=== PATIENT | male | born 1955 | race Caucasian/White ===

== ENCOUNTER 2016-08-14 14:30 | Outpatient (CLI) | payer OTHER | END 2016-08-14 14:31 | disposition home or self-care (01) | DX: M00.869 Arthritis due to other bacteria, unspecified knee (principal) ==

== ENCOUNTER 2016-08-21 08:00 | Outpatient (CLI) | payer OTHER | END 2016-08-21 08:01 | disposition home or self-care (01) | DX: M00.869 Arthritis due to other bacteria, unspecified knee (principal) ==

== ENCOUNTER 2019-07-11 09:42 | Outpatient (CLI) | payer OTHER ==
[2019-07-11 10:56] VITALS: BP 118/74
--- NOTE | 2019-07-11 10:56 | SLEEP CARE CONSULTATION ---
Information from patient questionnaire entered by Chantal Serrano. I have reviewed and concur with the information entered by Chantal Serrano. This document represents the service I personally performed and the decisions made by me, Emperatriz Ruiz MD, [facility]. History of Present Illness Reason for Visit: New patient Chief Complaint: reports: Unrefreshed sleep, Snoring, Excessive daytime sleepiness, Observed pauses in breathing, Fatigue, Frequent awakenings at night Duration of Symptoms: years Usual bedtime: 9 pm Time it takes to fall asleep: 5-30 minutes Snores at night: Yes Observed to quit breathing while asleep: Yes Sleeps alone due to snoring: No Number of times waking at night: 3-4 Reasons for waking at night: reports: Bathroom Toss, Turn, or Twitch while sleeping: Yes Recalls having dreams: Yes (sometimes/remembers bits) Usually gets out of bed at: mon-fri 5:30 am, weekends 9-10 am Feels refreshed in the morning: No Morning headache: Yes (once in a while) Sleepy or fatigued during the day: Yes Ever fallen asleep while driving: Yes Takes day naps: Yes (once in a while) Dreams during day naps: No Prior sleep studies: Yes Year and Where: 20 plus years ago Additional HPI information: I had the pleasure of seeing Mr. Adrian today regarding the possibility of him having a sleep disorder. As you know, he is a 63 year old gentleman who was diagnosed with sleep apnea 20+ years ago in [place]. He used a CPAP for about 3 years. He thinks it helped but it was too cumbersome. He quit because his nose hurt. He wore a full face mask. The patient tells me that he normally goes to bed around 9 pm, and it takes him approximately 5 - 30 minutes to fall asleep. He has been told that he snores loudly and irregularly at night especially when he is on his back. He has never been observed to stop breathing in his sleep. His can still sleep in the same bed. He can recall waking up on the average of 3 - 4 times during the night. Most of the time he wakes up because of having to use the bathroom. He has awakened occasionally because of his own snoring, choking, and having to gasp for air. There is a lot of tossing and turning in his sleep. No somniloq uy (sleep talking) or somnambulism (sleep walking). Generally he can recall having dreams. In the morning he usually gets up out of the bed around 5:30 a.m. not feeling refreshed nor rested. He usually does not have a morning headache. During the day he complains of feeling sleepy and fatigued. His score on [place] Sleepiness Scale is 21 out of 24. He has fallen asleep while driving and has gone out of the tariq. He usually does not take naps during the day. Upon falling asleep during the day he denies having vivid dreams. He has never had sleep paralysis, experienced cataplexy but reports symptoms of restless leg syndrome. He reports having impaired concentration during the day. 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 Patient is and lives in [place]. Have you smoked in the past 12 months: No Alcohol use: No Caffeine use: Yes Caffeine amount and frequency: 3-4 cups of tea Family History Family history of sleep disordered breathing: Yes Family Hx Sleep Apnea: Father: Sleep apnea - Untreated, Sibling: Sleep apnea - Treated Allergies and Home Medications Drug allergies reviewed: Yes Allergy and home medication list: Meds: benazepril, carvedilol, trazodone, sildenafil, levothyroxine, testosterone, latanoprist Review of Systems Weight gain over past 5 years: 20 Weight loss over past 5 years: 20 Cardiovascular: reports: high blood pressure, palpitations, irregular heart rate or pulse, leg or foot swelling Respiratory: reports: shortness of breath, sputum production Gastrointestinal: reports: heartburn, difficulty swallowing Urinary: reports: frequency, urgency Neurological: reports: gait or balance problems Psychiatric: reports: anxiety, depression Ear/Nose/Throat: reports: nasal congestion, dry mouth/throat, injury to nose, wisdom teeth removed Endocrine: reports: thyroid disease, sluggishness, excessive thirst, increased appetite, increased urination, unexplained weakness Musculoskeletal: reports: joint pain, neck pain, muscle pain or cramping Immunologic: reports: itching Physical Exam Vital signs obtained and entered by: Dr. Ruiz Blood Pressure: 118/74 Cuff size: regular Heart Rate: 52 O2 Saturation: 97 Height: 5 ft 11 in Weight: 275 lb Body Mass Index: 38.3 BMI Classification: Obesity Class 2 Neck circumference: 17 Mood/affect: normal HEENT: No craniofacial malformation Nostrils: patent to airflow Turbinates: normal Septum: midline Mouth and throat: narrow oropharynx Soft palate: long Hard palate: normal Uvula: normal Uvula visualization: 100% Mallampati Class I Tongue: normal in size Tonsils: small Chin and jaw: normal size and position Neck: normal w/o lymphadenopathy or thyromegaly Heart: regular rate and rhythm, murmur Lungs: clear bilaterally Abdomen: soft, non-tender Extremities: no edema or clubbing Neurologic: intact, no focal deficits Impression and Plan IMPRESSION: 1. Obstructive Sleep Apnea-Hypopnea Syndrome, as previously diagnosed but presently untreated. He appears to be symptomatic for loud and irregular snoring, frequent awakenings during the night, unrefreshed sleep, cognitive impairment, and daytime hypersomnolence. Untreated obstructive sleep apnea can also cause hypertension. Narrow oropharynx and obesity are common predisposing factors for obstructive sleep apnea-hypopnea syndrome. Pathophysiology of sleep-disordered breathing was discussed. I recommend proceeding to polysomnography to confirm the diagnosis and to assess severity. If he has significant sleep disordered breathing, a manual CPAP titration study will also be performed to find the optimal treatment pressure. I informed the patient of what the sleep studies involve and after some discussion, he agreed to proceed. Plan: 1. Schedule polysomnography + manual CPAP titration study and return in 1 to 2 weeks after the study to discuss result and initiate therapy. 2. Avoid long distance driving or when feeling sleepy. 3. Avoid alcohol, sedative and muscle relaxant around bedtime. 4. Attempt to lose weight. I spent 100% of this [20][30] minute visit face to face with the patient with greater than 50% of this was spent time counseling the patient and coordination of care.
== END 2019-07-11 09:43 ==
LOC: SC 09:42
PROVIDERS: ATTEND Internal Medicine Pulmonary Disease
DX: G47.33 Obstructive sleep apnea (adult) (pediatric) (principal); E66.9 Obesity, unspecified; Z68.38 Body mass index [BMI] 38.0-38.9, adult
CPT/HCPCS: 99203; 99212

== ENCOUNTER 2019-08-08 19:30 | Outpatient (CLI) | payer OTHER | END 2019-08-08 23:59 | disposition home or self-care (01) | LOC: SC 19:30 | PROVIDERS: ATTEND Internal Medicine Pulmonary Disease | DX: G47.33 Obstructive sleep apnea (adult) (pediatric) (principal) | CPT/HCPCS: 95806 ==

== ENCOUNTER 2019-08-30 13:49 | Outpatient (CLI) | payer OTHER ==
[2019-08-30 14:53] VITALS: BP 110/60
--- NOTE | 2019-08-30 14:53 | SLEEP CARE CONSULTATION ---
Information from patient questionnaire entered by Chantal Serrano. I have reviewed and concur with the information entered by Chantal Serrano. This document represents the service I personally performed and the decisions made by me, Seema Cast RN, MSN, [employer]. History of Present Illness Initial [place] Sleepiness Scale score: 21 Current [place] Sleepiness Scale score: 18 Additional HPI information: SHANTANU THOMASON returns with spouse for follow up of the recently performed home sleep study. I explained the pathophysiology behind obstructive sleep apnea. Patient does not have sleep apnea and was advised how weight gain could increase the risk of developing sleep apnea in the future. I strongly encouraged the patient to lose weight. Patient has lost over a hundred pounds since diagnosed with sleep apnea 20 years ago. When he was 30 pounds cup setter lockstitch, he felt more rested and refreshed with more energy during the day. Patient has snoring. Snoring can be reduced by weight loss. Weight loss is best achieved with diet consult. Patient instructed to contact PCP for referral. Snoring can also be treated with an oral appliance from a dentist. Advised to check insurance coverage. He will consider. In addition, an ENT evaluation can be do to see if other treatment is indicated. He has a history of deviated septum and repaired. He breathes better through his nose but still has nasal congestion affecting ability to breathe through his nose. Patient counseled not drink alcohol less than 4 hours before bedtime as it can increase snoring and apnea. Patient does not drink alcohol. Patient was cautioned about risks of drowsy driving until sleepiness symptoms resolve. AASM patient education on snoring and sleep apnea given and reviewed. Sleep Study - Results Polysomnography/Home Sleep Study results: SLEEP TIME AND EFFICIENCY: The sleep study recording began at 09:08:44 PM and ended at 05:35:49 AM. Total recording time was 507.1 minutes. The total sleep time was 465.0 minutes. The sleep efficiency was 91.7 percent. The patient spent 364.4 minutes supine, and spent 100.6 minutes non-supine. The patients own estimate of sleep time was 8.50 hours. RESPIRATORY DATA: The AHI in this report is indexed to sleep time based on actigraphy. The AASM defines this as OSITO. The AHI on this type 3 Home Sleep Study may understate the AHI determined on a type 1 or 2 study, since EEG is not monitored resulting in the inability to score non-desaturating hypopneas. Based on 4% Calculation: The AHI4% calculation of 3.2 per hour of recording time was based on a total of 17 scored apneas and 8 scored hypopneas with 4% desaturations. Supine AHI4%: 3.5 per hour. Non-supine AHI4%: 2.4 per hour. Oxygen Summary: Patient's baseline O2 saturation was 95.1 %. The patient spent 0.8 minutes at an oxygen saturation less than 90%, and 0.1 minutes less than 85%. The desaturation index was 2.1 events per hour sleep time. The lowest saturation was 70.1 %. SNORING: The percent of the study time spent snoring was 0.9 %. The Snoring Count was 150 . The Snoring Index was 19.4 . PULSE RATE REVIEW: The mean heart rate was 58 beats per minute. The rate ranged from a low of 49 to a high of 81 beats per minute. DIAGNOSIS CODE: suspected Obstructive Sleep Apnea (ICD-10 G47.30) Recommendation: No treatent is recommended. However, if there is a high pretest probablility for sleep disordered breathing, an in-laboratory polysomnography should be performed. Clinical correlation advised. Allergies and Home Medications Known drug allergies: Yes (vancomycin) Home medication list reviewed: Yes Allergy and home medication list: levothyroxine daily carvedilol daily bid benazepril daily bid testosterone injection 0.5mg every 2 weeks Buprenorphine and naloxone 8mg/2mg daily SL Review of Systems Review of systems same as previous: Yes Physical Exam Blood Pressure: 110/60 Cuff size: long Heart Rate: 58 O2 Saturation: 97 Height: 5 ft 11 in Weight: 280 lb 9.6 oz Body Mass Index: 39.1 BMI Classification: Obesity Class 2 Impression and Plan 1. Snoring but no significant sleep disordered breathing. Patient advised that often weight loss will reduce snoring as well as apnea risk. An oral appliance can also be used for snoring. This would require a dental consultation. Patient cautioned not to use other online appliances as can cause bite issues. A list of accredited dentists in area and one local dentist who makes oral appliances given. Patient is advised to check if insurance will cover. An ENT consult can also be helpful to determine if any other treatment is an option. 2. Excessive daytime sleepiness, todays Breckenridge was 18. After much discussion with patient it seems he was less sleepy when 30 pounds cup setter lockstitch in the past year. Weight gain can increase risk of snoring and apnea. Thus weight loss may be a treatment option. Since he is struggling with weight loss, a diet consultation could be beneficial but requires a referral from his PCP. He is also on medication that could make him sleepy but he states he was not sleepy with this medication 30 pounds cup setter lockstitch. Thus he is advised to follow up with PCP at his appointment next week for further evaluation of his sleepiness symptoms. A repeat polysomnography could also be done for further evaluation of sleep disordered breathing as a cause since an HST does not have an EEG to notice non desaturating hypopneas and symptoms have increased with weight gain increasing risk of apnea. Use of CPAP and control of apnea can reduce sleep disruption and increase ability to lose weight. Patient would like to defer until he discusses with his PCP. * Follow up with PCP for further evaluation of sleepiness symptoms. * Attempt to lose weight * Consider diet consultation. * Consider ENT consultation. * Avoid alcohol consumption near bedtime - does not drink * The patient is cautioned about driving until sleepiness is completely resolved. * Contact this office after PCP visit to inform this office of decision to pursue evaluation with polysomnography . * Time Spent with Patient (minutes): 36 I spent 100% of this visit face to face with the patient with greater than 50% of this was spent time counseling the patient and coordination of care.
== END 2019-08-30 13:50 | disposition home or self-care (01) ==
LOC: SC 13:49
PROVIDERS: ATTEND Nurse Practitioner Family
DX: R06.83 Snoring (principal); G47.10 Hypersomnia, unspecified; E66.9 Obesity, unspecified; Z68.39 Body mass index [BMI] 39.0-39.9, adult
CPT/HCPCS: 99212; 99214

== ENCOUNTER 2019-09-11 09:19 | Emergency (ER) | payer OTHER ==
[2019-09-11 09:33] VITALS: BP 122/56
[2019-09-11 09:59] LABS: RAPID STREP SCREEN Negative (Negative)
--- NOTE | 2019-09-11 10:12 | ED Physician Documentation ---
History of Present Illness - Stated complaint Stated Complaint: SORE THROAT - Chief complaint Chief Complaint: Heent - Additonal information Additional information: This is a 64-year-old male with a history of hypertension, heart failure, pre sents with sore throat nasal congestion, mild cough. This began on . He has felt some subjective fevers, no measured fever at home. He denies any chest pain, no changes to his breathing. He has had mild cough that has been nonproductive. Review of Systems Constitutional: denies: Fever Throat: reports: Sore throat Cardiac: denies: Chest pain / pressure Respiratory: denies: Dyspnea PD PAST MEDICAL HISTORY - Past Medical History Cardiovascular: Hypertension Respiratory: None Endocrine/Autoimmune: None - Past Surgical History Past Surgical History: Yes Ortho: Knee replacement - Present Medications Home Medications: Ambulatory Orders Medication Instructions Recorded Confirmed Benazepril HCl 1 tab PO BID 06/14/16 06/14/16 Carvedilol 1 tab PO BID 06/14/16 06/14/16 Levothyroxine [Synthroid] 1 tab PO DAILY 06/14/16 06/14/16 - Allergies Allergies/Adverse Reactions: Allergies Allergy/AdvReac Type Severity Reaction Status Date / Time No Known Drug Allergies Allergy Verified 09/11/19 09:29 - Social History Does the pt smoke?: No Smoking Status: Never smoker Does the pt drink ETOH?: No Does the pt have substance abuse?: No - Immunizations Immunizations are current?: Yes PD ED PE NORMAL - Vitals Vital signs reviewed: Yes - General General: Alert and oriented X 3, No acute distress - HEENT HEENT: Other (Posterior pharynx is erythematous, there is minimal tonsillar edema there is no exudate. Uvula is midline.) - Neck Neck: Supple, no meningeal sign - Cardiac Cardiac: Other (Mild bradycardia, regular rhythm) - Respiratory Respiratory: No respiratory distress, Clear bilaterally, Other - Abdomen Abdomen: Soft, Non distended - Derm Derm: Warm and dry - Extremities Extremities: No deformity - Neuro Neuro: Alert and oriented X 3 - Psych Psych: Normal mood, Normal affect Results - Vitals Vitals: Oxygen O2 Source Room air - Labs Labs: Microbiology 09/11/19 09:33 Group A Strep Throat Culture - Preliminary Throat CULTURE IN PROGRESS. RESULTS TO FOLLOW. Laboratory Tests 09/11/19 09:33 Group A Strep Rapid Negative PD MEDICAL DECISION MAKING - ED course ED course: Pt's symptoms are most consistent with URI and viral pharyngitis. His lungs are clear, O2 saturation is normal, no signs of pneumonia. No signs of EDGE BEADER or other more serious infection. No chest pain or shortness of breath. Pt is well- appearing. Rapid strep is negative. I discussed supportive care, return precautions, and after dexamethasone for symptom control patient was dischraged home in good condition. Departure - Departure Disposition: 01 Home, Self Care Clinical Impression: Pharyngitis Qualifiers: Pharyngitis/tonsillitis etiology: unspecified etiology Qualified Code(s): J02.9 - Acute pharyngitis, unspecified Condition: Good Instructions: ED Pharyngitis Viral Follow-Up: Leland Kruse MD [Primary Care Provider] - Comments: Your strep swab today was negative, I think this sore throat is likely caused by a virus. You may take Tylenol 650 mg every 6 hours for discomfort. We have given you a steroid that should help calm down your throat as well. Please drink adequate fluids and get plenty of rest. If you are having worsening symptoms such as difficulty breathing, return to the emergency department. We have sent the throat swab for culture, if this comes back positive for strep or another treatable bacteria we will call you with a prescription. Discharge Date/Time: 09/11/19 11:01
[2019-09-11] MEDS ORDERED: CHERRY SYRUP 10 ML UDC PO ONE (10:53)
[2019-09-11] MEDS ORDERED: DEXAMETHASONE 10 MG/ML VIAL PO STA (10:53)
== END 2019-09-11 11:01 | disposition home or self-care (01) ==
LOC: ED 09:19
DX: J02.9 Acute pharyngitis, unspecified (principal); R05 Cough; R09.81 Nasal congestion; R00.1 Bradycardia, unspecified; I11.0 Hypertensive heart disease with heart failure; I50.9 Heart failure, unspecified
CPT/HCPCS: 87070; 87430; 99283; 99284; A9270

== ENCOUNTER 2019-11-13 19:17 | Outpatient (CLI) | payer OTHER | END 2019-11-13 19:18 | disposition home or self-care (01) | LOC: COV 19:17 | PROVIDERS: ATTEND Family Medicine | DX: R05 Cough (principal); R50.9 Fever, unspecified | CPT/HCPCS: 81599 ==

== ENCOUNTER 2020-03-22 16:42 | Outpatient (CLI) | payer OTHER ==
--- NOTE | 2020-03-23 00:13 | XRAY Report ---
PROCEDURE: Shoulder 3 View RT INDICATIONS: RIGHT SHOULDER PAIN,PAIN IN LEFT THUMB TECHNIQUE: 4 views of the shoulder were acquired. COMPARISON: None. FINDINGS: Bones: No acute fractures or dislocations. No suspicious bony lesions. Visualized ribs appear inta ct. There is minimal spurring of the inferior glenoid. Mild degenerative changes are seen in the acr omioclavicular joint. Soft tissues: No suspicious soft tissue calcifications. IMPRESSION: No acute fracture or dislocation. Mild acromioclavicular and minimal glenohumeral osteoa rthrosis. MRI may be obtained if there is suspicion for a soft tissue injury. Reviewed by: Ilya Braswell MD on 03/23/2020 12:12 AM PDT Approved by: Ilya Braswell MD on 03/23/2020 12:12 AM PDT Station ID: [id number]
--- NOTE | 2020-03-23 00:15 | XRAY Report ---
PROCEDURE: Finger(s) LT INDICATIONS: RIGHT SHOULDER PAIN,PAIN IN LEFT THUMB TECHNIQUE: AP hand, 2 views of the thumb acquired. COMPARISON: No previous study is available for comparison. FINDINGS: Bones: No acute fractures or dislocations. No suspicious bony lesions. Mild degenerative changes a t the first carpometacarpal joint. Soft tissues: No suspicious soft tissue calcifications. IMPRESSION: No acute osseous abnormality is identified. Reviewed by: Ilya Braswell MD on 03/23/2020 12:13 AM PDT Approved by: Ilya Braswell MD on 03/23/2020 12:13 AM PDT Station ID: [id number]
== END 2020-03-22 16:43 | disposition home or self-care (01) ==
LOC: DI.S 16:42
PROVIDERS: ATTEND Nurse Practitioner Family
DX: M19.011 Primary osteoarthritis, right shoulder (principal); M79.645 Pain in left finger(s)
CPT/HCPCS: 73140

== ENCOUNTER 2020-06-17 15:01 | Outpatient (CLI) | payer OTHER ==
--- NOTE | 2020-06-17 17:48 | MRI Report ---
PROCEDURE: Shoulder RT W/O INDICATIONS: PAIN IN RT SHLDR TECHNIQUE: Noncontrast oblique coronal T2 fast spin echo with fat saturation, oblique sagittal T1 spin echo and T2 fast spin echo with fat saturation, axial T1 spin echo and T2 fast spin echo with fat saturation t hrough the shoulder. COMPARISON: X-ray 03/22/2020. FINDINGS: Image quality: There is mild motion artifact. Rotator cuff: There is tendinopathy of the supraspinatus and infraspinatus with full-thickness teari ng in the distal supraspinatus near its insertion. There is mild retraction of torn fibers by up to a pproximately 1.5 cm. The tear measures up to approximately 1.6 cm in anteroposterior dimension. There are residual intact appearing fibers within the supraspinatus anteriorly. The infraspinatus demonstr ates mild to moderate partial thickness articular surface tearing distally. The subscapularis demonst rates tendinopathy with mild tearing distally. The teres minor tendon appears intact. There is severe fatty atrophy of the teres minor muscle. Bones and bursae: No bone marrow contusions or fractures. There is moderate to severe acromioclavicu lar joint degeneration. The acromion demonstrates conventional anatomy, without an os acromiale. A m oderate amount of subacromial/subdeltoid bursal fluid is present communicating with the glenohumeral joint. There is mild glenohumeral joint degeneration. Capsule and soft tissues: There is mild degenerative tearing within the posterior inferior labrum. I n the absence of intra-articular contrast, the glenohumeral ligaments appear intact. The long head o f the biceps tendon demonstrates normal location and morphology. The rotator interval appears normal , without fibrosis. The coracohumeral ligament is normal in thickness. IMPRESSION: 1. Tendinopathy of the superior cuff with full-thickness tearing of the supraspinatus as described. M ild to moderate articular surface partial tearing of the distal infraspinatus also noted. No associat ed fatty muscle atrophy. 2. Severe fatty atrophy of the teres minor muscle suggesting sequelae of impingement. 3. Moderate to severe acromioclavicular joint degeneration with moderate subacromial/subdeltoid bursa fluid. 4. Mild degenerative tearing of the posterior inferior labrum. Reviewed by: Paddy Adam MD on 06/17/2020 5:47 PM PST Approved by: Paddy Adam MD on 06/17/2020 5:47 PM PST Station ID: [id number]
== END 2020-06-17 15:02 | disposition home or self-care (01) ==
LOC: DI 15:01
PROVIDERS: ATTEND Nurse Practitioner Family
DX: M75.101 Unspecified rotator cuff tear or rupture of right shoulder, not specified as traumatic (principal); M19.011 Primary osteoarthritis, right shoulder

== ENCOUNTER 2023-09-08 07:49 | Outpatient (CLI) | payer OTHER ==
--- NOTE | 2023-09-08 11:32 | Ultrasound Report ---
PROCEDURE: Aorta Screening INDICATIONS: EX SMOKER TECHNIQUE: Real time scanning was performed of the aorta and iliac arteries, with image documentatio n. COMPARISON: None. FINDINGS: Aorta: Proximal aortic diameter measures 2.9 x 2.8 cm. Mid-aorta measures 2.3 x 2.5 cm. Distal aor tic diameter is 1.9 x 1.8 cm. Iliac arteries: Right common iliac artery measures 1.3 x 1.3 cm. Left common iliac artery measures 1.3 x 1.3 cm. IMPRESSION: Ectatic but not aneurysmal proximal abdominal aorta. Comment: As per the recommendations below, consider repeat imaging in 5 years. Recommended intervals for follow-up imaging of ectatic aortas and abdominal aortic aneurysms, per ACR consensus guidelines: 2.5-2.9 cm: 5 years 3.0-3.4 cm: 3 years 3.5-3.9 cm: 2 years 4.0-4.4 cm: 1 year 4.5-4.9 cm: 6 months + endovascular referral 5.0-5.5 cm: 3-6 months + endovascular referral Reviewed by: Kailash Rowley MD on 09/08/2023 11:31 AM PST Approved by: Kailash Rowley MD on 09/08/2023 11:31 AM PST Station ID: [id number]
== END 2023-09-08 07:50 | disposition home or self-care (01) ==
LOC: DI 07:49
PROVIDERS: ATTEND Nurse Practitioner Family
DX: Z13.6 Encounter for screening for cardiovascular disorders (principal); Z87.891 Personal history of nicotine dependence; I77.811 Abdominal aortic ectasia

== ENCOUNTER 2023-12-27 09:34 | Outpatient (CLI) | payer OTHER ==
--- NOTE | 2023-12-28 00:56 | XRAY Report ---
PROCEDURE: Hand 3+V LT INDICATIONS: L THUMB PAIN TECHNIQUE: 3 view(s) of the hand(s) acquired. COMPARISON: None FINDINGS: Bones: No fractures or dislocations. No suspicious bony lesions. Soft tissues: No suspicious soft tissue calcifications. IMPRESSION: Unremarkable hand radiographs Reviewed by: Efra Marroquin MD on 12/27/2023 11:54 PM AKDT Approved by: Efra Marroquin MD on 12/27/2023 11:54 PM AKDT Station ID: [id number]
== END 2023-12-27 09:35 | disposition home or self-care (01) ==
LOC: DI.S 09:34
PROVIDERS: ATTEND Nurse Practitioner Family
DX: M79.645 Pain in left finger(s) (principal)

== ENCOUNTER 2024-05-04 10:21 | Emergency (ER) | payer OTHER ==
--- NOTE | 2024-05-04 10:40 | ED Physician Documentation ---
History of Present Illness - Stated complaint Stated Complaint: C+,CONSTIPATED,ABD PX - History obtained from History obtained from: Patient - Additonal information Additional information: The patient comes to the emergency department chief complaint of fever, chills, cough, and bodyaches. He states that started yesterday. His recently tested positive for COVID. He also had a sore throat yesterday but this is better today. He denies any nausea or vomiting. No diarrhea. No urinary symptoms. No shortness of breath. No abdominal or chest pain. PD PAST MEDICAL HISTORY - Past Medical History Cardiovascular: Hypertension Respiratory: None Endocrine/Autoimmune: None - Past Surgical History Past Surgical History: Yes Ortho: Knee replacement - Present Medications Home Medications: Ambulatory Orders Medication Instructions Recorded Confirmed Benazepril HCl 1 tab PO BID 06/14/16 06/14/16 Carvedilol 1 tab PO BID 06/14/16 06/14/16 Levothyroxine [Synthroid] 1 tab PO DAILY 06/14/16 06/14/16 - Allergies Allergies/Adverse Reactions: Allergies Allergy/AdvReac Type Severity Reaction Status Date / Time No Known Drug Allergies Allergy Verified 09/11/19 09:29 - Social History Does the pt smoke?: No Smoking Status: Never smoker Does the pt drink ETOH?: No Does the pt have substance abuse?: No - Immunizations Immunizations are current?: Yes PD ED PE NORMAL - Vitals Vital signs reviewed: Yes - General General: Alert and oriented X 3, No acute distress, Well developed/nourished - HEENT HEENT: Atraumatic, EOMI, Moist mucous membranes - Neck Neck: Supple, no meningeal sign - Cardiac Cardiac: RRR, No murmur - Respiratory Respiratory: No respiratory distress, Clear bilaterally - Abdomen Abdomen: Soft, Non tender, Non distended - Derm Derm: Normal color, Warm and dry, No rash - Extremities Extremities: No deformity - Neuro Neuro: Other (Alert, grossly intact.) - Psych Psych: Normal mood, Normal affect Results - Vitals Vitals: Oxygen O2 Source Room air PD Medical Decision Making - ED course Complexity details: reviewed results, re-evaluated patient, considered differential, d/w patient ED course: The patient was very likely to have COVID and testing was initiated for this, but based on his age, he was also worked up with chest x-ray, general labs, and urinalysis.
--- NOTE | 2024-05-04 10:58 | XRAY Report ---
PROCEDURE: Chest 1V INDICATIONS: cough/fever TECHNIQUE: One view of the chest was acquired. COMPARISON: 07/29/2016. FINDINGS: Surgical changes and devices: None. Lungs and pleura: No pleural effusions or pneumothorax. Lungs are clear. Mediastinum: Mediastinal contours appear normal. Heart size is normal. Bones and chest wall: No suspicious bony lesions. Overlying soft tissues appear unremarkable. IMPRESSION: No acute cardiopulmonary process. Reviewed by: Kailash Rowley MD on 05/04/2024 10:57 AM PDT Approved by: Kailash Rowley MD on 05/04/2024 10:57 AM PDT Station ID: [id number]
[2024-05-04 10:59] LABS: BASOPHILS % (AUTO) 0.6 %; EOSINOPHILS % (AUTO) 0.9 %; HCT - HEMATOCRIT 38.6 % (42.0-52.0); HGB - HEMOGLOBIN 12.1 g/dL (14.0-18.0); LYMPHOCYTES # (AUTO) 0.8 10^3/uL (1.5-3.5); LYMPHOCYTES % (AUTO) 24.1 %; MEAN CORPUSCULAR HEMOGLOBIN 29.2 pg (27.0-31.0); MEAN CORPUSCULAR HGB CONC 31.3 g/dL (32.0-36.0); MEAN CORPUSCULAR VOLUME 93.2 fL (80.0-94.0); MEAN PLATELET VOLUME 10.6 fL (7.4-11.4); MONOCYTES # (AUTO) 0.4 10^3/uL (0.0-1.0); MONOCYTES % (AUTO) 10.1 %; NEUTROPHILS # (AUTO) 2.2 10^3/uL (1.5-6.6); NEUTROPHILS % (AUTO) 63.7 %; PLT - PLATELET COUNT 185 10^3/uL (130-450); RED BLOOD COUNT 4.14 10^6/uL (4.70-6.10); RED CELL DISTRIBUTION WIDTH 14.2 % (12.0-15.0); WHITE BLOOD COUNT 3.5 x10^3/uL (4.8-10.8)
[2024-05-04] MEDS: ACETAMINOPHEN 325 MG TABLET PO STA (11:15)
[2024-05-04] MEDS: IBUPROFEN 600 MG TABLET PO STA (11:15)
[2024-05-04] MEDS: SODIUM CHLORIDE 0.9% 1,000 ML IV STA (11:15)
[2024-05-04 11:18] LABS: ALBUMIN 4.1 g/dL (3.2-5.5); ALBUMIN/GLOBULIN RATIO 2.2 (1.0-2.2); ALKALINE PHOSPHATASE 81 IU/L (42-121); ALT ALANINE AMINOTRANSFERASE 18 IU/L (10-60); AST ASPARTATE AMINOTRANSFERASE 22 IU/L (10-42); BILIRUBIN,TOTAL 1.2 mg/dL (0.2-1.0); BUN - BLOOD UREA NITROGEN 11 mg/dL (6-20); CALCIUM 9.1 mg/dL (8.5-10.3); CARBON DIOXIDE - CO2 30 mmol/L (21-32); CHLORIDE 102 mmol/L (101-111); CREATININE 0.8 mg/dL (0.6-1.3); GFR - MDRD 96 (>89); GLUCOSE 98 mg/dL (74-104); POTASSIUM 4.2 mmol/L (3.5-4.5); SODIUM 137 mmol/L (135-145)
--- NOTE | 2024-05-04 11:21 | ED Physician Documentation ---
History of Present Illness - Stated complaint Stated Complaint: C+,CONSTIPATED,ABD PX - Chief complaint Chief Complaint: Abd Pain - Additonal information Additional information: 76-year-old male with history of hypertension currently on Suboxone chronic constipation presents emergency department for 5 days of no bowel movement. Patient also states that 2 days ago he was diagnosed with COVID and so is overall feeling unwell and cannot tell if it because he is constipated or because of COVID or combination. He feels some mild nausea no vomiting he has no history of abdominal surgeries he has been taking MiraLAX at home as well as a couple enemas without any success of a bowel movement. PD PAST MEDICAL HISTORY - Past Medical History Cardiovascular: Hypertension Respiratory: None Endocrine/Autoimmune: None - Past Surgical History Past Surgical History: Yes Ortho: Knee replacement - Present Medications Home Medications: Ambulatory Orders Medication Instructions Recorded Confirmed Benazepril HCl 1 tab PO BID 06/14/16 06/14/16 Carvedilol 1 tab PO BID 06/14/16 06/14/16 Levothyroxine [Synthroid] 1 tab PO DAILY 06/14/16 06/14/16 - Allergies Allergies/Adverse Reactions: Allergies Allergy/AdvReac Type Severity Reaction Status Date / Time No Known Drug Allergies Allergy Verified 05/04/24 10:39 - Social History Does the pt smoke?: No Smoking Status: Never smoker Does the pt drink ETOH?: No Does the pt have substance abuse?: No - Immunizations Immunizations are current?: Yes PD ED PE NORMAL - Vitals Vital signs reviewed: Yes - General General: Alert and oriented X 3, No acute distress, Well developed/nourished - HEENT HEENT: Atraumatic - Cardiac Cardiac: RRR - Respiratory Respiratory: No respiratory distress - Abdomen Abdomen: Normal bowel sounds, Soft, Non tender, Non distended, No organomegaly, Other - Derm Derm: Normal color, Warm and dry, No rash Results - Vitals Vitals: Vital Signs - 24 hr 05/04/24 05/04/24 05/04/24 10:34 12:43 14:00 Temperature 36.7 C Heart Rate 53 L 54 L 51 L Respiratory 17 17 15 Rate Blood Pressure 160/68 H 160/68 H 152/79 H O2 Saturation 97 98 99 Oxygen O2 Source Room air - Labs Labs: Laboratory Tests 05/04/24 05/04/24 05/04/24 10:51 10:51 13:49 WBC 3.5 L RBC 4.14 L Hgb 12.1 L Hct 38.6 L MCV 93.2 MCH 29.2 MCHC 31.3 L RDW 14.2 Plt Count 185 MPV 10.6 Neut # (Auto) 2.2 Lymph # (Auto) 0.8 L [place] # (Auto) 0.4 Eos # (Auto) 0.0 Baso # (Auto) 0.0 Absolute Nucleated RBC 0.00 Nucleated RBC % 0.0 Sodium 137 Potassium 4.2 Chloride 102 Carbon Dioxide 30 Anion Gap 5.0 L BUN 11 Creatinine 0.8 Estimated GFR (MDRD) 96 Glucose 98 Calcium 9.1 Total Bilirubin 1.2 H AST 22 ALT 18 Alkaline Phosphatase 81 Total Protein 6.0 L Albumin 4.1 Globulin 1.9 L Albumin/Globulin Ratio 2.2 Lipase < 10 L Nasal Adenovirus (PCR) NOT DETECTED Nasal B. parapertussis DNA (PCR) NOT DETECTED Nasal Coronavir 229E PCR NOT DETECTED Nasal Coronavir HKU1 PCR NOT DETECTED Nasal Coronavir NL63 PCR NOT DETECTED Nasal Coronavir OC43 PCR NOT DETECTED Nasal Enterovir/Rhinovir PCR NOT DETECTED Nasal Influenza B PCR NOT DETECTED Nasal Influenza A PCR NOT DETECTED Nasal Parainfluen 1 PCR NOT DETECTED Nasal Parainfluen 2 PCR NOT DETECTED Nasal Parainfluen 3 PCR NOT DETECTED Nasal Parainfluen 4 PCR NOT DETECTED Nasal RSV (PCR) NOT DETECTED Nasal B.pertussis DNA PCR NOT DETECTED Nasal C.pneumoniae (PCR) NOT DETECTED Masoud Human Metapneumo PCR NOT DETECTED Nasal M.pneumoniae (PCR) NOT DETECTED Nasal SARS-CoV-2 (PCR) DETECTED A - Rads (name of study) chest Xray Relevant Findings:: Final report received, EMP independent interpretation of test, Other (No acute cardiopulmonary abnormalities or findings) Abdomen pelvis with contrast Relevant Findings:: Final report received, EMP independent interpretation of test, Other (Normal fecal load, very mild pelvic ascites, mild bladder wall thickening.) PD Medical Decision Making - ED course ED course: 68-year-old male presents emergency department for concerns of constipation. He has no history of abdominal surgeries he is not having any emesis he does have some mild underlying nausea but says that he cannot tell if this is from COVID or from being constipated. Labs are complete for further evaluation which revealed mild leukopenia 3.5 which is most likely due to COVID-positive, no other significant electrolyte abnormalities. He was given 1 L of IV fluid as well as some Tylenol ibuprofen and Zofran for his COVID symptoms. After soapsuds enema was complete patient at that point time was still unable to have a bowel movement so we completed abdominal CT with contrast for further evaluation. Abdominal CT showed normal fecal load very mild pelvic ascites with mild bladder wall thickening. Patient denies any signs symptoms of urinary tract infection. After CT scan patient was able to start having more bowel movement. Patient was told going home to drink plenty of fluids he was updated about his CT findings and was very reassured by this. He is told to follow-up with primary care provider as needed and to take MiraLAX daily until he feels like he is starting to have regular bowel movements again. All questions answered patient is safe for discharge at this time. Departure - Departure Disposition: 01 Home, Self Care Clinical Impression: COVID-19, Constipation Instructions: ED Constipation Comments: Thank you for trusting us with your care, we have evaluated you for your concerns of constipation. We have given you a soapsuds enema and unfortunately you are not able to have a bowel movement because of this we decided to pursue an abdominal CT scan. Your abdominal CT scan was reassuring it shows that you have a normal amount of stool in your colon most of the fecal load is higher up in your abdomen and so is just going to take time for it to pass through. Make sure that you are drinking plenty of water that you are taking MiraLAX 1-2 times a day and you can consider adding things like prune juice to your regimen to make sure that you eventually have a bowel movement. I know it is difficult because you not feeling well with COVID but the more that you can be up walking moving around the more physical activity and exercise the easier it is for your body to pass bowel. If you start to develop any fevers or chills nausea or vomiting or any other concerning symptoms please come back to the emergency department for reevaluation. Forms: PCP List Discharge Date/Time: 05/04/24 14:16
[2024-05-04 11:38] LABS: LIPASE < 10 U/L (11-82)
[2024-05-04] MEDS: SOAP SUDS ENEMA 1 EACH RC ONE (12:12)
[2024-05-04] MEDS: ONDANSETRON 4 MG/2 ML VIAL IVP STA (12:12)
[2024-05-04] MEDS ORDERED: iohexoL-300 100 ML VIAL ONE (13:04)
[2024-05-04] MEDS: iohexoL-300 100 ML VIAL IVP ONE (13:26)
--- NOTE | 2024-05-04 13:44 | CT Report ---
PROCEDURE: Abdomen/Pelvis W INDICATIONS: constipation CONTRAST: 100ml [id number] TECHNIQUE: After the administration of intravenous contrast, a CT scan of the abdomen and pelvis was performed. Images were recorded and evaluated at appropriate window settings. Reformats: coronal and sagittal. F or radiation dose reduction, the following was used: automated exposure control, adjustment of mA and /or kV according to patient size. COMPARISON: None. FINDINGS: Image quality: Diagnostic. Lower chest: Unremarkable. Liver: No solid mass. Gallbladder: Surgically absent. Biliary tree: No intrahepatic or extrahepatic dilation, accounting for age. Spleen: No splenomegaly. Pancreas: No pancreatic ductal dilation. Adrenals: Small lipid-laden left adrenal adenoma. Kidneys and ureters: No hydronephrosis. No renal cystic lesion which requires follow up. No solid mas s. Stomach, bowel and peritoneum: No gastric or small bowel dilation. No abnormal wall thickening.. Very mild pelvic ascites. Normal fecal load. Lymph nodes: No central or retroperitoneal adenopathy. Vessels: No infrarenal aortic aneurysm. Patent portal vein. PELVIS Reproductive organs: Unremarkable. Bladder: Mild wall thickening, accounting for underdistention with small right base of bladder divert iculum. Pelvic lymph nodes: No pelvic adenopathy by size criteria. Bones: No aggressive osseous abnormality. Other: No significant ventral or inguinal hernia. IMPRESSION: 1. Normal fecal load. 2. Very mild pelvic ascites. 3. Mild bladder wall thickening. Reviewed by: Kailash Rowley MD on 05/04/2024 1:43 PM PDT Approved by: Kailash Rowley MD on 05/04/2024 1:43 PM PDT Station ID: [id number]
[2024-05-04 14:22] VITALS: BP 152/79; O2SAT 99
[2024-05-04 15:03] LABS: B. PARAPERTUSSIS- RESP PCR PAN NOT DETECTED; B. PERTUSSIS- RESP PCR PANEL NOT DETECTED; C. PNEUMONIAE- RESP PCR PANEL NOT DETECTED; CORONAVIRUS 229E-RESP PCR NOT DETECTED; CORONAVIRUS HKU1-RESP PCR NOT DETECTED; CORONAVIRUS NL63-RESP PCR NOT DETECTED; CORONAVIRUS OC43-RESP PCR NOT DETECTED; HUMAN METAPNEUMOVIRUS NOT DETECTED; INFLUENZA A- RESP PCR PANEL NOT DETECTED; INFLUENZA B - RESP PCR PANEL NOT DETECTED; M. PNEUMONIAE- RESP PCR PANEL NOT DETECTED; PARAINFLUENZA VIRUS 1 NOT DETECTED; PARAINFLUENZA VIRUS 2 NOT DETECTED; PARAINFLUENZA VIRUS 3 NOT DETECTED; PARAINFLUENZA VIRUS 4 NOT DETECTED; RHINOVIRUS/ENTEROVIRUS NOT DETECTED; RSV- RESP PCR PANEL NOT DETECTED
[2024-05-04 15:07] LABS: SARS-CoV-2 -RESP PCR PANEL DETECTED
== END 2024-05-04 14:16 | disposition home or self-care (01) ==
LOC: ED 10:21
DX: U07.1 COVID-19 (principal); K59.00 Constipation, unspecified
CPT/HCPCS: 36415; 71045; 74177; 80053; 83690; 85025; 87633; 99284; A9270; Q9967